=== PATIENT | male | born 1955 | race Caucasian/White ===

== ENCOUNTER 2017-04-07 14:27 | Emergency (ER) | payer MEDICARE ==
[2017-04-07 17:43] LABS: CREATININE 0.7 mg/dL (0.7-1.2); POTASSIUM 3.8 mmol/L (3.5-5.1)
[2017-04-07 20:43] LABS: URIC ACID 5.2 mg/dL (3.4-7.0)
== END 2017-04-07 17:19 | disposition home or self-care (01) ==
LOC: FER 14:27
PROVIDERS: Emergency Medicine
DX: M10.071 Idiopathic gout, right ankle and foot (principal); I10 Essential (primary) hypertension; E11.9 Type 2 diabetes mellitus without complications; E78.5 Hyperlipidemia, unspecified; Z79.01 Long term (current) use of anticoagulants; Z79.84 Long term (current) use of oral hypoglycemic drugs; Z79.899 Other long term (current) drug therapy
CPT/HCPCS: 36415; 80048; 84550; 99283

== ENCOUNTER 2021-04-05 20:40 | Emergency (ER) | payer MEDICARE ==
[2021-04-05] MEDS ORDERED: DICLOFENAC SODI75 MG PO (22:10)
[2021-04-05] MEDS ORDERED: CYCLOBENZAPRINE10 MG PO (22:10)
== END 2021-04-05 22:20 | disposition home or self-care (01) ==
LOC: FER 20:40
DX: S13.4XXA Sprain of ligaments of cervical spine, initial encounter (principal); I10 Essential (primary) hypertension; E11.9 Type 2 diabetes mellitus without complications; Z86.73 Personal history of transient ischemic attack (TIA), and cerebral infarction without residual deficits; X58.XXXA Exposure to other specified factors, initial encounter
CPT/HCPCS: J1885; J2930; J3360